=== PATIENT | male | born 1935 | race Caucasian/White ===

== ENCOUNTER 2019-09-27 17:45 | Inpatient (IN) | payer MEDICARE ==
[~2019-09-27] VITALS: Ht 182.8 cm; Wt 108.9 kg
[2019-09-27 17:55] VITALS: BP 132/51
[2019-09-27 18:52] LABS: BASO % 0.2 % (0.0-1.0); EOS # 0.1 10*3/uL (0.0-0.4); EOS % 2.2 % (1.0-4.0); LYMPH # 0.4 10*3/uL (1.3-4.4); MEAN CELL VOLUME 96.9 fl (80.0-94.0); MEAN CORPUSCULAR HGB 29.4 pg (27.0-31.0); MEAN CORPUSCULAR HGB CONC 30.4 g/dl (33.0-37.0); MEAN PLATELET VOLUME 11.3 fl (9.6-12.3); MONO # 0.5 10*3/uL (0.1-1.0); NEUT % 80.2 % (47.0-73.0); PLATELET COUNT AUTOMATED 77 10*3/uL (130-400); RED BLOOD COUNT 2.89 10*6/uL (4.50-5.90); RED CELL DISTRI WIDTH 17.3 % (0-14.5)
[2019-09-27 19:10] LABS: ACT PARTIAL THROMBO TIME 41.9 SECONDS (20.0-32.1); INTERNATIONAL NORM RATIO 1.2 (2.0-3.5)
[2019-09-27 19:13] LABS: ALBUMIN 3.1 gm/dl (3.1-4.5); CREATININE 2.33 mg/dL (0.70-1.30); TOTAL PROTEIN 7.4 gm/dL (6.4-8.2)
[2019-09-27 19:18] LABS: TROPONIN I 0.108 ng/ml (<0.045)
[2019-09-27 23:24] VITALS: BP 130/54
[2019-09-27] MEDS ORDERED: ASPIRIN CHEWABL81 MG PO (23:51)
[2019-09-27] MEDS ORDERED: BUMETANIDE0.5 MG PO (23:51)
[2019-09-27] MEDS ORDERED: TYLENOL325 M1 PO (23:51)
[2019-09-27] MEDS ORDERED: BUMETANIDE1 MG PO (23:52)
[2019-09-27] MEDS ORDERED: DONEPEZIL HCL10 MG PO (23:53)
[2019-09-27] MEDS ORDERED: CALCIUM500 M1 PO (23:53)
[2019-09-27] MEDS ORDERED: NEURONTIN100 MG PO (23:54)
[2019-09-27] MEDS ORDERED: FERROUS SULFAT325 MG PO (23:54)
[2019-09-27] MEDS ORDERED: HYDROXYZINE PAM25 M1 PO (23:55)
[2019-09-27] MEDS ORDERED: NAMENDA10 MG PO (23:55)
[2019-09-27] MEDS ORDERED: METOPROLOL SUCC50 M1 PO (23:56)
[2019-09-27] MEDS ORDERED: AQUADEKS CHEWA1 EACH PO (23:57)
[2019-09-27] MEDS ORDERED: KLOR-CON M2020 ME1 PO (23:57)
[2019-09-27] MEDS ORDERED: RISPERIDONE0.25 M2 PO (23:58)
[2019-09-27] MEDS ORDERED: ALDACTONE25 M1 PO (23:58)
[2019-09-28] VITALS (7 sets, daily range): BP systolic 116–150; BP diastolic 54–76
[2019-09-28 07:59] LABS: BASO % 0.2 % (0.0-1.0); EOS # 0.1 10*3/uL (0.0-0.4); EOS % 1.2 % (1.0-4.0); HEMATOCRIT 27.4 % (42.0-52.0); LYMPH # 0.5 10*3/uL (1.3-4.4); MEAN CELL VOLUME 95.1 fl (80.0-94.0); MEAN CORPUSCULAR HGB 28.8 pg (27.0-31.0); MEAN CORPUSCULAR HGB CONC 30.3 g/dl (33.0-37.0); MEAN PLATELET VOLUME 11.7 fl (9.6-12.3); MONO # 0.5 10*3/uL (0.1-1.0); MONO % 8.8 % (3.0-9.0); NEUT # 4.9 10*3/uL (2.3-7.9); NEUT % 80.5 % (47.0-73.0); PLATELET COUNT AUTOMATED 83 10*3/uL (130-400); RED BLOOD COUNT 2.88 10*6/uL (4.50-5.90); RED CELL DISTRI WIDTH 17.4 % (0-14.5)
[2019-09-28 08:13] LABS: ALBUMIN 3.2 gm/dl (3.1-4.5); CREATININE 2.36 mg/dL (0.70-1.30); POTASSIUM 4.7 mmol/L (3.5-5.1); TOTAL PROTEIN 7.2 gm/dL (6.4-8.2)
[2019-09-28 08:17] LABS: TROPONIN I 0.128 ng/ml (<0.045)
[2019-09-28 08:31] LABS: ACT PARTIAL THROMBO TIME 41.6 SECONDS (20.0-32.1); INTERNATIONAL NORM RATIO 1.2 (2.0-3.5)
[2019-09-28 12:12] LABS: BILIRUBIN NEGATIVE (NEGATIVE); BLOOD NEGATIVE (NEGATIVE); CLARITY SL CLOUDY (CLEAR); COLOR YELLOW (YELLOW); GLUCOSE NEGATIVE (NEGATIVE); KETONE NEGATIVE (NEGATIVE); LEUKO ESTERASE TRACE (NEGATIVE); NITRITE NEGATIVE (NEGATIVE); UROBILINOGEN 0.2 E.U./dl (0.2-1.0)
[2019-09-28 12:21] LABS: BACTERIA 2+; HYALINE CAST 21-30; WBC 21-30 wbc/hpf (0-5)
[2019-09-28] MEDS ORDERED: BUMETANIDE1 MG PO (15:37)
[2019-09-29] VITALS: BP 113/74
[2019-09-29 06:01] LABS: BASO % 0.2 % (0.0-1.0); EOS # 0.1 10*3/uL (0.0-0.4); EOS % 1.5 % (1.0-4.0); HEMATOCRIT 26.7 % (42.0-52.0); LYMPH # 0.6 10*3/uL (1.3-4.4); LYMPH % 9.6 % (27.0-41.0); MEAN CELL VOLUME 94.3 fl (80.0-94.0); MEAN CORPUSCULAR HGB CONC 30.7 g/dl (33.0-37.0); MEAN PLATELET VOLUME 12.2 fl (9.6-12.3); MONO # 0.6 10*3/uL (0.1-1.0); MONO % 9.6 % (3.0-9.0); NEUT # 4.6 10*3/uL (2.3-7.9); NEUT % 78.9 % (47.0-73.0); PLATELET COUNT AUTOMATED 80 10*3/uL (130-400); RED BLOOD COUNT 2.83 10*6/uL (4.50-5.90); RED CELL DISTRI WIDTH 17.3 % (0-14.5); WHITE BLOOD COUNT 5.9 10*3/uL (4.8-10.8)
[2019-09-29 06:13] LABS: CREATININE 2.37 mg/dL (0.70-1.30); POTASSIUM 4.1 mmol/L (3.5-5.1)
[2019-09-29 08:00] VITALS: BP 117/60
[2019-09-29 12:00] VITALS: BP 123/71
[2019-09-29 16:00] VITALS: BP 123/58
[2019-09-29 20:00] VITALS: BP 131/57
[2019-09-30] VITALS: BP 120/72
[2019-09-30 08:00] VITALS: BP 132/74
[2019-09-30 09:10] LABS: BASO % 0.4 % (0.0-1.0); EOS # 0.1 10*3/uL (0.0-0.4); EOS % 2.6 % (1.0-4.0); HEMATOCRIT 26.6 % (42.0-52.0); LYMPH # 0.6 10*3/uL (1.3-4.4); LYMPH % 12.8 % (27.0-41.0); MEAN CORPUSCULAR HGB 29.6 pg (27.0-31.0); MEAN CORPUSCULAR HGB CONC 31.2 g/dl (33.0-37.0); MEAN PLATELET VOLUME 10.6 fl (9.6-12.3); MONO # 0.4 10*3/uL (0.1-1.0); MONO % 7.3 % (3.0-9.0); NEUT # 3.8 10*3/uL (2.3-7.9); NEUT % 76.5 % (47.0-73.0); PLATELET COUNT AUTOMATED 74 10*3/uL (130-400); RED CELL DISTRI WIDTH 17.4 % (0-14.5); WHITE BLOOD COUNT 4.9 10*3/uL (4.8-10.8)
[2019-09-30 09:34] LABS: CREATININE 2.61 mg/dL (0.70-1.30)
[2019-09-30 12:00] VITALS: BP 138/62
[2019-09-30 16:00] VITALS: BP 120/44
[2019-09-30 20:00] VITALS: BP 117/67
[2019-10-01] VITALS: BP 99/50
[2019-10-01 06:52] LABS: BASO % 0.2 % (0.0-1.0); EOS # 0.2 10*3/uL (0.0-0.4); EOS % 3.8 % (1.0-4.0); HEMATOCRIT 27.4 % (42.0-52.0); LYMPH # 0.6 10*3/uL (1.3-4.4); LYMPH % 12.7 % (27.0-41.0); MEAN CELL VOLUME 94.8 fl (80.0-94.0); MEAN CORPUSCULAR HGB 28.7 pg (27.0-31.0); MEAN CORPUSCULAR HGB CONC 30.3 g/dl (33.0-37.0); MEAN PLATELET VOLUME 12.3 fl (9.6-12.3); MONO # 0.4 10*3/uL (0.1-1.0); NEUT # 3.4 10*3/uL (2.3-7.9); NEUT % 74.9 % (47.0-73.0); PLATELET COUNT AUTOMATED 81 10*3/uL (130-400); RED BLOOD COUNT 2.89 10*6/uL (4.50-5.90); RED CELL DISTRI WIDTH 17.3 % (0-14.5); WHITE BLOOD COUNT 4.5 10*3/uL (4.8-10.8)
[2019-10-01 07:12] LABS: CREATININE 2.59 mg/dL (0.70-1.30); POTASSIUM 3.8 mmol/L (3.5-5.1)
[2019-10-01 08:00] VITALS: BP 129/84
[2019-10-01 12:00] VITALS: BP 123/60
[2019-10-01 16:00] VITALS: BP 112/54
[2019-10-01 20:00] VITALS: BP 99/46
[2019-10-02] VITALS: BP 117/50
[2019-10-02 06:38] LABS: BASO % 0.2 % (0.0-1.0); EOS # 0.2 10*3/uL (0.0-0.4); EOS % 4.2 % (1.0-4.0); LYMPH # 0.6 10*3/uL (1.3-4.4); LYMPH % 13.7 % (27.0-41.0); MEAN CELL VOLUME 94.9 fl (80.0-94.0); MEAN CORPUSCULAR HGB 29.2 pg (27.0-31.0); MEAN CORPUSCULAR HGB CONC 30.7 g/dl (33.0-37.0); MEAN PLATELET VOLUME 11.7 fl (9.6-12.3); MONO # 0.3 10*3/uL (0.1-1.0); MONO % 6.4 % (3.0-9.0); NEUT # 3.4 10*3/uL (2.3-7.9); NEUT % 75.1 % (47.0-73.0); PLATELET COUNT AUTOMATED 81 10*3/uL (130-400); RED BLOOD COUNT 2.95 10*6/uL (4.50-5.90); RED CELL DISTRI WIDTH 17.3 % (0-14.5); WHITE BLOOD COUNT 4.5 10*3/uL (4.8-10.8)
[2019-10-02 06:52] LABS: CREATININE 2.48 mg/dL (0.70-1.30); POTASSIUM 3.7 mmol/L (3.5-5.1)
[2019-10-02 08:00] VITALS: BP 102/56
[2019-10-02 12:00] VITALS: BP 128/31
[2019-10-02] MEDS ORDERED: DOXYCYCLINE MO100 M1 PO (14:35)
[2019-10-02 16:00] VITALS: BP 110/46
== END 2019-10-02 16:28 | DRG 292 ==
LOC: ED 17:45 → 4E 19:54 → EDHOLD 19:54 → 4E 09-28 02:23
PROVIDERS: Emergency Medicine; Internal Medicine; Student in an Organized Health Care Education/Training Program; ADMIT Internal Medicine
DX: I13.0 Hypertensive heart and chronic kidney disease with heart failure and stage 1 through stage 4 chronic kidney disease, or unspecified chronic kidney disease (principal); R18.8 Other ascites; E87.0 Hyperosmolality and hypernatremia; N18.4 Chronic kidney disease, stage 4 (severe); L03.119 Cellulitis of unspecified part of limb; D53.9 Nutritional anemia, unspecified; I06.0 Rheumatic aortic stenosis; D69.6 Thrombocytopenia, unspecified; E87.8 Other disorders of electrolyte and fluid balance, not elsewhere classified; R73.9 Hyperglycemia, unspecified; E83.41 Hypermagnesemia; R74.8 Abnormal levels of other serum enzymes; G30.9 Alzheimer's disease, unspecified; N32.89 Other specified disorders of bladder; Z66 Do not resuscitate; E66.01 Morbid (severe) obesity due to excess calories; F10.21 Alcohol dependence, in remission; Z51.5 Encounter for palliative care; I87.2 Venous insufficiency (chronic) (peripheral); F02.80 Dementia in other diseases classified elsewhere, unspecified severity, without behavioral disturbance, psychotic disturbance, mood disturbance, and anxiety; R91.8 Other nonspecific abnormal finding of lung field; S90.414A Abrasion, right lesser toe(s), initial encounter; X58.XXXA Exposure to other specified factors, initial encounter; Y93.89 Activity, other specified; Y92.89 Other specified places as the place of occurrence of the external cause; Y99.8 Other external cause status; Z85.038 Personal history of other malignant neoplasm of large intestine; Z95.0 Presence of cardiac pacemaker; Z95.2 Presence of prosthetic heart valve; Z90.49 Acquired absence of other specified parts of digestive tract; Z82.3 Family history of stroke; Z82.0 Family history of epilepsy and other diseases of the nervous system; Z79.82 Long term (current) use of aspirin; Z79.899 Other long term (current) drug therapy; Z68.34 Body mass index [BMI] 34.0-34.9, adult; Z03.818 Encounter for observation for suspected exposure to other biological agents ruled out; I50.9 Heart failure, unspecified